=== PATIENT | female | born 1975 | race Caucasian/White ===

== ENCOUNTER 2016-07-18 16:03 | Emergency (ER) | payer SELFPAY ==
[2016-07-18] MEDS ORDERED: DILAUDID INJ IVP ONE (16:06)
--- NOTE | 2016-07-18 16:07 | DR.GENAD ---
HPI - Complaint/Symptoms Chief Complaint Doctors Comments: Patient states that a granite top fell onto her lower extremities just prior to arrival. PMH - PMH Past Medical History: Anxiety, Arthritis, Depression, Migraines, GERD, Headaches Past Surgical History: Yes Surgical History: Cholecystectomy - Family History Family Medical History: Diabetes Mellitus, Cancer, [place], Coronary Artery Disease, Heart Failure, Sudden Cardiac - Social History Do you use any recreational Drugs:: No ROS - Review of Systems Constitutional: No Symptoms Reported Eyes: No Symptoms Reported ENTM: No Symptoms Reported Respiratoy: No Symptoms Reported Cardiovascular: No Symptoms Reported Gastrointestinal/Abdominal: No Symptoms Reported Genitourinary: No Symptoms Reported Neurological: No Symptoms Reported Musculoskeletal: Leg (pain) Integumentary: No Symptoms Reported Hematologic/Lymphatic: No Symptoms Reported Endocrine: No Symptoms Reported Psychiatric: No Symptoms Reported All Other Systems: Reviewed and Negative PE - Vital Signs Vitals: Temperature 98.8 F Pulse Rate 87 Respiratory Rate 20 Blood Pressure 135/105 O2 Sat by Pulse Oximetry 100 - General Limitations: No Limitations General Appearance: Alert, In No Apparent Distress - Eyes Eye exam: Normal Appearance, PERRL, EOMI - ENT ENT Exam: Normal Exam External Ear Exam: Normal External Inspection TM/Canal Exam: Bilateral Normal Nose Exam: Normal Nose Exam Mouth Exam: Normal Inspection Throat Exam: Normal Inspection - Neck Neck Exam: Normal Inspection - Chest Chest Inspection: Normal Inspection - Respiratory Respiratory Exam: Normal Lung Sounds Bilat Respiratory Exam: Bilateral Clear to Auscultation - Cardiovascular Cardiovascular Exam: Regular Rate, Normal Rhythm - Abdominal Exam Abdominal Exam: Normal Inspection, Normal Bowel Sounds Abdominal Tenderness: negative: RUQ, RLQ, LUQ, LLQ, Epigastrium, Suprapubic, Diffuse, Mild, Moderate, Severe, Other - Extremities Extremities Exam: Normal Inspection - Back Back Exam: Normal Inspection - Neurologic Neurological Exam: Alert, Oriented X3, CN II-XII Intact Course - Reevaluation 1st: Improved ROR - XRAY XRAY Interpreted by: Radiologist (Bilateral Tib/Fib: negative for acute abnormality) - Diagnosis Discharge Problem: Contusion of lower extremity Qualifiers: Encounter type: initial encounter Laterality: unspecified laterality Qualified Code(s): S80.10XA - Contusion of unspecified lower leg, initial encounter - Discharge Plan Condition: Stable - Follow ups/Referrals Follow ups/Referrals: NFD,None [Primary Care Provider] - 3 days - Instructions
[2016-07-18 16:10] VITALS: BP 135/105; BMI 21.0
[2016-07-18] MEDS ORDERED: DILAUDID INJ ONE (16:11)
--- NOTE | 2016-07-18 16:51 | RAD ---
HISTORY: Blunt trauma left lower extremity Study: Left tibia and fibula two view Comparison: None Findings: There is no evidence for fracture, lytic, or blastic lesion. No abnormal periosteal reaction or soft tissue abnormality is identified. IMPRESSION: No significant abnormality identified Reported By:
--- NOTE | 2016-07-18 16:51 | RAD ---
Two views of the right foreleg Indication: Wayne table fell on leg Findings: No displaced fracture or dislocation identified within the right foreleg. No localizing so ft tissue swelling, radiopaque foreign body or gas. The right knee and ankle joint alignment are jesus alberto tomic. Impression: No acute radiographic abnormality identified within the right foreleg. Reported By:
== END 2016-07-18 17:15 | disposition home or self-care (01) ==
LOC: ER 16:03
DX: S80.11XA Contusion of right lower leg, initial encounter (principal); S80.12XA Contusion of left lower leg, initial encounter; X58.XXXA Exposure to other specified factors, initial encounter; Y92.9 Unspecified place or not applicable
CPT/HCPCS: 73590; 96365; 96374; 99282; 99283